=== PATIENT | female | born 1985 | race Caucasian/White ===

== ENCOUNTER → 2017-06-13 | Outpatient (REF) | payer OTHER | LOC: M LAB REF 09:53 | DX: R10.30 Lower abdominal pain, unspecified (principal) | CPT/HCPCS: 87086 ==

== ENCOUNTER → 2017-10-10 | Outpatient (CLI) | payer OTHER | LOC: M ADAMS 10:14 | DX: M54.42 Lumbago with sciatica, left side (principal) | CPT/HCPCS: 72110 ==

== ENCOUNTER → 2017-12-16 | Outpatient (REF) | payer OTHER ==
[2017-12-21 00:06] LABS: HPV HYBRID CAPTURE II Negative (Negative)
== END ==
LOC: M LAB REF 13:08
DX: Z30.432 Encounter for removal of intrauterine contraceptive device (principal)

== ENCOUNTER → 2018-01-16 | Outpatient (CLI) | payer OTHER | LOC: M ADAMS 09:33 | DX: M79.671 Pain in right foot (principal); M19.071 Primary osteoarthritis, right ankle and foot | CPT/HCPCS: 73630 ==

== ENCOUNTER → 2018-04-03 | Outpatient (REF) | payer OTHER | LOC: M LAB 12:09 | PROVIDERS: ATTEND Physician Assistant | DX: J02.9 Acute pharyngitis, unspecified (principal) ==

== ENCOUNTER → 2018-05-05 | Outpatient (REF) | payer MEDICAID ==
[2018-05-05 13:03] LABS: BASO % 0.2 % (0.0-1.0); EOS % 0.4 % (0.0-3.0); HEMOGLOBIN 12.2 g/dl (12.0-15.5); LYMPH # 1.8 10^3/uL (1.5-4.5); LYMPH % 19.2 % (24.0-44.0); MEAN CORPUSCULAR HEMOGLOBIN 31.8 pg (27.0-33.0); MEAN CORPUSCULAR HGB CONC 33.9 g/dl (32.0-36.5); MEAN CORPUSCULAR VOLUME 93.8 fl (80.0-96.0); MONO # 0.7 10^3/uL (0.0-0.8); MONO % 7.1 % (0.0-5.0); NEUTROPHILS # 6.8 10^3/uL (1.8-7.7); NEUTROPHILS % 72.9 % (36.0-66.0); PLATELET COUNT, AUTOMATED 210 10^3/uL (150-450); RED BLOOD COUNT 3.84 10^6/uL (4.00-5.40); WHITE BLOOD COUNT 9.3 10^3/uL (4.0-10.0)
[2018-05-05 13:44] LABS: HEPATITIS C VIRUS ABY INDEX 0.1 INDEX (<0.8); HIV 1&2 SCREEN CENTAUR NEGATIVE (NEGATIVE); RUBELLA IgG QUALITATIVE IMMUNE (IMMUNE)
[2018-05-05 14:41] LABS: CHLAMYDIA DNA AMPLIFICATION NEGATIVE (NEGATIVE); GC DNA AMPLIFICATION NEGATIVE (NEGATIVE)
== END ==
LOC: M LABSMT 12:14
PROVIDERS: ATTEND Advanced Practice Midwife
DX: Z3A.09 9 weeks gestation of pregnancy (principal); Z34.81 Encounter for supervision of other normal pregnancy, first trimester

== ENCOUNTER → 2018-05-27 | Outpatient (CLI) | payer MEDICAID ==
--- NOTE | 2018-05-27 11:59 | REP ---
PELVIC ULTRASOUND: 05/27/2018. Clinical history: Right lower quadrant pain. Evaluate for appendix or right ovarian cyst. First trimester . Findings: There are no prior studies. The appendix is not visualized. There is no pain with transducer pressure or rebound tenderness in the right lower quadrant. No mesenteric fat inflammation or mesenteric nodes are seen and I see no free fluid. Cecum was not visualized. There are no visible iliac nodes. Bowel peristalsis cannot be evaluated. The right ovary is 3.7 x 2.4 x 1.1 cm. Color flow was demonstrated. Doppler resistive index 0.51. There is a small follicle seen 7 x 5 x 6 mm. In addition, there is a small hemorrhagic follicle 1.4 x 1.1 x 2.1 cm. (Cyst defined at 2.5 cm). The patient is known to be 13 weeks . Today's heart rate is 147. Impression: 1. There is a hemorrhagic follicle or hematologic corpus luteum in the right ovary 2.1 x 1.4 x 1.1 cm. No free fluid. 2. Right ovary 3.7 x 2.4 x 1.1 cm with normal color and Doppler flow demonstrated. Resistive index of 0.51. 3. Appendix is not visualized. There was no tenderness or rebound tenderness on examination which is helpful. Absence of visualization of the appendix does not exclude the possibility of disease. 4. heart rate noted 147 for this first trimester (13 weeks). Electronically Signed by Mamadou Calixto MD 05/27/2018 05:49 P
[2018-05-27 12:23] LABS: BASO % 0.2 % (0.0-1.0); EOS # 0.1 10^3/uL (0.0-0.50); EOS % 0.5 % (0.0-3.0); HEMATOCRIT 35.8 % (36.0-47.0); HEMOGLOBIN 12.1 g/dl (12.0-15.5); LYMPH # 1.5 10^3/uL (1.5-4.5); LYMPH % 15.6 % (24.0-44.0); MEAN CORPUSCULAR HEMOGLOBIN 31.8 pg (27.0-33.0); MEAN CORPUSCULAR HGB CONC 33.8 g/dl (32.0-36.5); MONO # 0.6 10^3/uL (0.0-0.8); NEUTROPHILS # 7.2 10^3/uL (1.8-7.7); NEUTROPHILS % 77.2 % (36.0-66.0); PLATELET COUNT, AUTOMATED 228 10^3/uL (150-450); RED BLOOD COUNT 3.81 10^6/uL (4.00-5.40); WHITE BLOOD COUNT 9.3 10^3/uL (4.0-10.0)
== END ==
LOC: M RAD 09:53
PROVIDERS: ATTEND Advanced Practice Midwife
DX: R10.31 Right lower quadrant pain (principal)

== ENCOUNTER → 2018-05-30 | Outpatient (CLI) | payer MEDICAID | LOC: M SMT 10:53 | PROVIDERS: ATTEND Advanced Practice Midwife | DX: Z13.79 Encounter for other screening for genetic and chromosomal anomalies (principal) ==